=== PATIENT | male | born 1995 ===

== ENCOUNTER 2022-03-13 11:55 | Emergency (ER) | payer MEDICAID ==
[2022-03-13] MEDS ORDERED: predniSONE 20 MG Tab PO ONE (11:56)
[2022-03-13] MEDS ORDERED: diphenhydrAMINE 50 MG/ML SDV IM ONE (12:06)
[2022-03-13] MEDS ORDERED: Triamcinolone Acetonide 40 MG/ML 1 ML SDV IM ONE (12:06)
== END 2022-03-13 12:45 | disposition home or self-care (01) ==
LOC: FB.ED 11:55
DX: T63.441A Toxic effect of venom of bees, accidental (unintentional), initial encounter (principal)
CPT/HCPCS: 96372; 99282; J1200; J3301; J7512

== ENCOUNTER 2022-07-07 12:19 | Emergency (ER) | payer MEDICAID | END 2022-07-07 13:00 | disposition home or self-care (01) | LOC: FB.ED 12:19 | DX: T33.812A Superficial frostbite of left ankle, initial encounter (principal); T33.811A Superficial frostbite of right ankle, initial encounter; X31.XXXA Exposure to excessive natural cold, initial encounter | CPT/HCPCS: 99283 ==